=== PATIENT | female | born 1960 | race Caucasian/White ===

== ENCOUNTER 2016-11-16 10:11 | Outpatient (CLI) | payer OTHER ==
--- NOTE | 2016-11-24 13:12 | Mammography Report ---
DIGITAL SCREENING MAMMOGRAM: 11/16/2016 CLINICAL INDICATION: A 56-year-old for screening. COMPARISON: Films from [place], [place] dated 03/02/2014, 04/06/2011, 03/11/2010, 10/06/2006, 06/06/2005 TECHNIQUE: Routine CC and MLO projections were obtained of the breasts. FINDINGS: The breasts again demonstrate scattered fibroglandular densities bilaterally. In the righ t upper-inner posterior breast, there is a possible obscured nodule. Further evaluation with spot co mpression views and possible ultrasound is recommended. A few punctate, typically benign calcificati ons are present. No mammographically suspicious findings are appreciated in the left breast. IMPRESSION: INCOMPLETE EXAMINATION. RECOMMENDATION: Additional evaluation of the right breast as above. BIRADS CATEGORY 0 - INCOMPLETE. STANDARD QUALIFYING STATEMENTS 1. This examination was reviewed with the aid of Computer-Aided Detection (CAD). 2. A negative or benign imaging report should not delay biopsy if clinically suspicious findings are present. Consider surgical consultation if warranted. More than 5% of cancers are not identified by i maging. 3. Dense breasts may obscure an underlying neoplasm. JOB #: [id number] EXT JOB #:[id number]
== END 2016-11-16 10:12 | disposition home or self-care (01) ==
LOC: DI 10:11
PROVIDERS: ATTEND Family Medicine
DX: Z12.31 Encounter for screening mammogram for malignant neoplasm of breast (principal); R92.8 Other abnormal and inconclusive findings on diagnostic imaging of breast
CPT/HCPCS: 77067

== ENCOUNTER 2016-12-14 10:39 | Outpatient (CLI) | payer OTHER ==
--- NOTE | 2016-12-14 12:42 | Mammography Report ---
DIGITAL DIAGNOSTIC RIGHT MAMMOGRAM: 12/14/2016 CLINICAL INDICATION: Nodule on screening. TECHNIQUE: Right true lateral and spot compression views. COMPARISON: 11/16/2016, 03/02/2014, 04/06/2011, 05/12/2009, 10/06/2006, 06/06/2005. FINDINGS: The right breast again demonstrates scattered fibroglandular densities. The nodule in the right upper inner posterior breast persists on additional compression, and demonstrates a fatty hilum on additional compression, compatible with an intramammary lymph node. No associated calcifications are seen. No mammographically suspicious findings are appreciated. IMPRESSION: INTRAMAMMARY LYMPH NODE, ACCOUNTING FOR THE SCREENING ABNORMALITY. RECOMMENDATION: ROUTINE ANNUAL SCREENING UNLESS OTHERWISE CLINICALLY INDICATED. BIRADS CATEGORY 2-BENIGN FINDINGS. STANDARD QUALIFYING STATEMENTS 1. This examination was reviewed with the aid of Computer-Aided Detection (CAD). 2. A negative or benign imaging report should not delay biopsy if clinically suspicious findings are present. Consider surgical consultation if warranted. More than 5% of cancers are not identified by i maging. 3. Dense breasts may obscure an underlying neoplasm. JOB #: [id number] EXT JOB #:
== END 2016-12-14 10:40 | disposition home or self-care (01) ==
LOC: DI 10:39
PROVIDERS: ATTEND Family Medicine
DX: R92.2 Inconclusive mammogram (principal)

== ENCOUNTER 2019-10-10 17:48 | Outpatient (CLI) | payer OTHER ==
--- NOTE | 2019-10-12 14:13 | Ultrasound Report ---
PROCEDURE: Duplex Ext Veins Bilateral INDICATIONS: ERROL BENTLEYLER TECHNIQUE: Real-time imaging, as well as color and pulse Doppler interrogation, were performed of the deep veins of both legs from the inguinal ligament to the popliteal fossa. COMPARISON: Ultrasound arterial 10/10/2019 FINDINGS: The deep veins are normally compressible, and free of intraluminal thrombus. Color and pu lse Doppler demonstrate normal phasic intravascular flow. There is normal augmentation response to d istal compression maneuver. It is noted that there is a nonocclusive thrombus within the greater sap henous vein. IMPRESSION: 1. No deep venous thrombosis. 2. Nonocclusive greater saphenous vein thrombosis, suggestive of thrombophlebitis. Reviewed by: Zulma Ratliff MD on 10/12/2019 2:12 PM PDT Approved by: Zulma Ratliff MD on 10/12/2019 2:12 PM PDT Station ID: [id number]
--- NOTE | 2019-10-12 14:16 | Ultrasound Report ---
PROCEDURE: Duplex Lwr Ext Arterial Bilat INDICATIONS: BILATERAL LEG PAIN TECHNIQUE: Color and pulse Doppler interrogation was performed of both lower extremity arterial systems, with im age documentation. COMPARISON: Ultrasound venous 10/10/2019 FINDINGS: Right lower extremity: Common femoral artery: 116 cm/sec, with triphasic flow. Deep femoral artery: 81 cm/sec, with biphasic flow. Proximal superficial femoral artery: 92 cm/sec, with triphasic flow. Mid superficial femoral artery: 96 cm/sec, with triphasic flow. Distal superficial femoral artery: 82 cm/sec, with triphasic flow. Popliteal artery: 97 cm/sec, with triphasic flow. Posterior tibial artery: 56 cm/sec, with triphasic flow. Anterior tibial artery/dorsalis pedis: 60/44 cm/sec, with triphasic/biphasic flow. Ferreira-scale imaging description: Scattered calcifications. Left lower extremity: Common femoral artery: 130 cm/sec, with triphasic flow. Deep femoral artery: 84 cm/sec, with triphasic flow. Proximal superficial femoral artery: 119 cm/sec, with triphasic flow. Mid superficial femoral artery: 95 cm/sec, with triphasic flow. Distal superficial femoral artery: 75 cm/sec, with triphasic flow. Popliteal artery: 63 cm/sec, with triphasic flow. Posterior tibial artery: 62 cm/sec, with biphasic flow. Anterior tibial artery/dorsalis pedis: 41/48 cm/sec, with triphasic/biphasic flow. Ferreira-scale imaging description: Artery calcifications. IMPRESSION: No hemodynamically significant stenosis, vascular occlusion or aneurysmal dilation. Reviewed by: Zulma Ratliff MD on 10/12/2019 2:15 PM PDT Approved by: Zulma Ratliff MD on 10/12/2019 2:15 PM PDT Station ID: [id number]
== END 2019-10-10 17:49 | disposition home or self-care (01) ==
LOC: DI 17:48
PROVIDERS: ATTEND Nurse Practitioner Family
DX: M79.661 Pain in right lower leg (principal); M79.662 Pain in left lower leg; I82.819 Embolism and thrombosis of superficial veins of unspecified lower extremity
CPT/HCPCS: 93925; 93970

== ENCOUNTER 2020-10-20 12:25 | Outpatient (CLI) | payer OTHER ==
[2020-10-20 12:57] LABS: CREATININE 0.7 mg/dL (0.4-1.0)
[2020-10-20] MEDS ORDERED: IOVERSOL 320 100 ML VIAL IVP ONE (12:57)
--- NOTE | 2020-10-20 14:57 | CT Report ---
PROCEDURE: IVP INDICATIONS: HEMATURIA CONTRAST: IV CONTRAST: Optiray 320 ml: 140 PO CONTRAST: *NO PO CONTRAST TECHNIQUE: After the administration of intravenous contrast, 5 mm thick sections acquired from the diaphragms to the symphysis. 5 mm thick coronal and sagittal reformats were acquired. For radiation dose reducti on, the following was used: automated exposure control, adjustment of mA and/or kV according to eloy ent size. COMPARISON: None. FINDINGS: Image quality: Excellent. Lung bases: Lung bases demonstrate an 8 mm nodule in the right middle lobe with a linear adjacent pl eural scar. A 4 mm subpleural nodule posteromedial left lower lobe. Heart size is normal. Urinary system: 2 mm nonobstructing right lower pole intrarenal calcification, and a few punctate ca lcifications in the upper pole calyx. There is mild to moderate right hydronephrosis and prominence o f the extrarenal pelvis. Moderate right hydroureter to the level of the midpelvis. There is periurete analisa inflammation. At the mid pelvis, a 9 mm calcification is present in in the distal right ureter, t here is one, possibly 2 calcifications together measuring about 5 mm in length. There are punctate nonobstructing left upper pole intrarenal calculi, a collection of calculi in the left lower pole, which together measures at least 1.5 cm. There is a 5.3 cm parapelvic cyst in the le ft kidney. No left hydronephrosis or hydroureter. Solid organs: The liver is normal in size and mildly diffusely hypodense. The gallbladder is partial ly decompressed around several small gallstones. No wall thickening. No adrenal nodules. Spleen is no rmal size. The pancreas is normal Peritoneum and bowel: Bowel loops demonstrate normal wall thickness and caliber. No free fluid or a ir. Nodes and vessels: No retroperitoneal or mesenteric adenopathy by size criteria. Aorta and inferior vena cava are normal in size. Abdominal wall: No ventral hernias. Pelvis: No pathologic free pelvic fluid. No inguinal hernias or adenopathy. Bones: No suspicious bony lesions. No vertebral body compression fractures. IMPRESSION: 1. There are at least 2 right distal ureteral calcifications causing chronic appearing mild to modera te hydroureteronephrosis. Urology consult is recommended given their size. 2. Several nonobstructing bilateral intrarenal calculi. 3. Left parapelvic cyst. 4. Two lower lung nodules. Full chest CT is recommended to assess for other nodules. 5. Cholelithiasis. Reviewed by: Madison Darnell MD on 10/20/2020 2:56 PM PDT Approved by: Madison Darnell MD on 10/20/2020 2:56 PM PDT Station ID: [id number]
[2020-10-20] MEDS: IOVERSOL 320 100 ML VIAL IVP ONE (17:36)
== END 2020-10-20 12:26 | disposition home or self-care (01) ==
LOC: DI 12:25
PROVIDERS: ATTEND Registered Nurse
DX: N13.2 Hydronephrosis with renal and ureteral calculous obstruction (principal); R91.8 Other nonspecific abnormal finding of lung field; N28.1 Cyst of kidney, acquired; K80.20 Calculus of gallbladder without cholecystitis without obstruction; R31.29 Other microscopic hematuria
CPT/HCPCS: 36415; 74178; 82565; Q9967

== ENCOUNTER 2020-10-24 14:26 | Outpatient (CLI) | payer OTHER ==
--- NOTE | 2020-10-26 12:59 | Mammography Report ---
BILATERAL DIGITAL SCREENING MAMMOGRAM 3D/2D: 10/24/2020 CLINICAL: Routine screening. Comparison is made to exams dated: 12/14/2016 mammogram and 11/16/2016 mammogram - [facility]. The tissue of both breasts is predominantly fatty. There is an oval asymmetry in the right breast sub-areolar depth central to the nipple seen on the me diolateral oblique view only. There also is a mass in the right breast central to the nipple middle depth. There is an asymmetry in the left breast middle depth central to the nipple seen on the craniocaudal view only. IMPRESSION: INCOMPLETE: NEEDS ADDITIONAL IMAGING EVALUATION The oval asymmetry in the right breast sub-areolar depth central to the nipple seen on the mediolater al oblique view only is indeterminate. Additional views with possible ultrasound are recommended. The mass in the right breast central to the nipple middle depth is indeterminate. Additional views w ith possible ultrasound are recommended. The asymmetry in the left breast middle depth central to the nipple seen on the craniocaudal view onl y is indeterminate. Additional views with possible ultrasound are recommended. This exam was interpreted at Station ID: [id number]. NOTE: For mammograms, a report in lay terms will be sent to the patient. Approximately 15% of breast malignancies will not be visualized mammographically. In the management of a palpable breast mass, a negative mammogram must not discourage biopsy of a clinically suspicious lesion. Electronically Signed By: Chapin Martins M.D. jr/:10/25/2020 09:49:27 ACR BI-RADS Category 0: Incomplete 3340F PARENCHYMAL PATTERN: (F) - The breast(s) demonstrate(s) diffuse fatty replacement. BI-RADS CATEGORY: (0) - 0 Mammo and US [id number] Immediate follow-up LATERALITY: (B)
== END 2020-10-24 14:27 | disposition home or self-care (01) ==
LOC: DI.S 14:26
DX: Z12.31 Encounter for screening mammogram for malignant neoplasm of breast (principal); R92.8 Other abnormal and inconclusive findings on diagnostic imaging of breast

== ENCOUNTER 2020-11-12 08:26 | Outpatient (CLI) | payer OTHER ==
[2020-11-12] MEDS ORDERED: IOPAMIDOL-300 100 ML VIAL ONE (08:39)
--- NOTE | 2020-11-12 09:16 | CT Report ---
PROCEDURE: CHEST W INDICATIONS: LUNG NODULES CONTRAST: IV CONTRAST: Isovue 300 ml: 100 PO CONTRAST: *NO PO CONTRAST TECHNIQUE: After the administration of intravenous contrast, images were acquired from the pulmonary apices to t he posterior costophrenic angles. Multiplanar MIP reformats were acquired. For radiation dose reduc tion, the following was used: automated exposure control, adjustment of mA and/or kV according to pa tient size. COMPARISON: CT IVP dated 10/20/2020 FINDINGS: Image quality: Excellent. Lungs and pleura: Pulmonary nodules are as follows: Nodule 1: Right middle lobe, image 166/4, 7 mm. Nodule 2: Pleural-based, posterior left lower lobe, image 167/4, 4 mm. These nodules are unchanged from the recent prior study. No additional pulmonary nodules identified. No acute air space opacities. No pleural effusions or pneumothorax. Central and peripheral airways are patent and normal in caliber. Mediastinum: Heart size is normal. No pericardial effusion. No mediastinal or hilar adenopathy by size criteria. Thoracic aorta and central pulmonary arteries are normal in size. Incidental note is made of normal variant anatomy in which there is apparent origin of the right subclavian off the pro ximal descending thoracic aorta. Esophagus is normal in caliber. No hiatal hernia. Bones and chest wall: No suspicious bony lesions. No vertebral body compression fractures. No axil gina or supraclavicular adenopathy by size criteria. The thyroid is normal in size and there are no incidental findings.. Abdomen: Imaging does not extend inferiorly far enough to comment on the current status of the right renal collecting system. Multiple calcified gallstones. Diffuse hepatic steatosis. IMPRESSION: 1. The 2 pulmonary nodules previously described are unchanged on short interval follow-up. These are the only 2 pulmonary nodules identified, a 7 mm right middle lobe pulmonary nodule and a 4 mm left lo wer lobe pulmonary nodule. 2. Incidental note made of normal variant arch anatomy, apparent right subclavian artery off the prox imal descending thoracic aorta. 3. Hepatic steatosis. 4. Cholelithiasis. 5. Right renal collecting system is not included on the current study. Comment: As per the Fleischner Society criteria,If the patient is at low risk for lung cancer follow up CT at 6-12 months, then at 18-24 months if not change. If the patient has risk factors for lung c ladan follow up chest CT at 3-6 months, then at 9-12 months and 24 months if no change. CLINICAL RECOMMENDATION STATEMENTS: In patients <35 years with an ITN detected on CT, MRI, or extrathyroidal ultrasound, the Committee re commends further evaluation with dedicated thyroid ultrasound if the nodule is ?1 cm and has no suspi cious imaging features, and if the patient has normal life expectancy. In patients ?35 years with an ITN detected on CT, MRI, or extrathyroidal ultrasound, the Committee re commends further evaluation with dedicated thyroid ultrasound if the nodule is ?1.5 cm and has no ariana picious imaging features, and if the patient has normal life expectancy. (ACR, 2014) Reviewed by: Van Santiago MD on 11/12/2020 9:15 AM PDT Approved by: Van Santiago MD on 11/12/2020 9:15 AM PDT Station ID: [id number]
[2020-11-12] MEDS ORDERED: IOPAMIDOL-300 100 ML VIAL IVP ONE (11:32)
== END 2020-11-12 08:27 | disposition home or self-care (01) ==
LOC: DI 08:26
PROVIDERS: ATTEND Family Medicine
DX: R91.8 Other nonspecific abnormal finding of lung field (principal); K76.0 Fatty (change of) liver, not elsewhere classified; K80.20 Calculus of gallbladder without cholecystitis without obstruction; N60.41 Mammary duct ectasia of right breast; N60.11 Diffuse cystic mastopathy of right breast
CPT/HCPCS: 71260; 76642; 77066; Q9967

== ENCOUNTER 2020-11-12 08:28 | Outpatient (CLI) | payer OTHER ==
--- NOTE | 2020-11-15 16:38 | Mammography Report ---
BILATERAL DIGITAL DIAGNOSTIC MAMMOGRAM 3D/2D: 11/12/2020 CLINICAL: Patient returns today to evaluate a focal asymmetry in the left breast. Patient returns tod ay to evaluate an asymmetry in the right breast. Comparison is made to exams dated: 10/24/2020 mammogram, 12/14/2016 mammogram, 11/16/2016 mammogram - [facility], and 03/02/2014 mammogram - [facility]. There are scattered fibroglan dular elements in both breasts. There is possible equal density duct ectasia in the right breast at 12 o'clock anterior depth. This is less prominent. There also is a 1.4 cm oval mass with a circumscribed margin in the right breast at 12 o'clock anteri or depth. This is confirmed in additional views. There is a 1 cm oval equal density mass in the left breast central to the nipple middle-posterior dep th. This is seen in additional views. No other significant masses or calcifications are seen in either breast. IMPRESSION: INCOMPLETE: NEEDS ADDITIONAL IMAGING EVALUATION The possible equal density duct ectasia in the right breast at 12 o'clock anterior depth is indetermi isma. The 1.4 cm oval mass in the right breast at 12 o'clock anterior depth resembles a cyst or a lymph nod e and is indeterminate. The 1 cm oval equal density mass in the left breast central to the nipple middle depth resembles a cy st or a lymph node and is indeterminate. A bilateral ultrasound is recommended for further evaluation and is scheduled to immediately follow t his examination. This exam was interpreted at Station ID: [id number]. NOTE: For mammograms, a report in lay terms will be sent to the patient. Approximately 15% of breast malignancies will not be visualized mammographically. In the management of a palpable breast mass, a negative mammogram must not discourage biopsy of a clinically suspicious lesion. Electronically Signed By: Tim Thibodeaux M.D. aty/:11/12/2020 10:17:01 ACR BI-RADS Category 0: Incomplete 3340F PARENCHYMAL PATTERN: (A) - The breast(s) demonstrate(s) scattered fibroglandular densities. BI-RADS CATEGORY: (0) - 0 Ultrasound [id number] Immediate follow-up LATERALITY: (B)
--- NOTE | 2020-11-15 16:38 | Ultrasound Report ---
LIMITED ULTRASOUND OF RIGHT BREAST: 11/12/2020 CLINICAL: Patient returns today to evaluate a focal asymmetries in the right breast. Comparison is made to exams dated: 11/12/2020 mammogram, 10/24/2020 mammogram, 12/14/2016 mammogram, mammogram - [facility], and 03/02/2014 mammogram - [facility]. Color flow and real-time ultrasound of the right breast 11 o'clock, and retroareolar regions were per formed. Ferreira scale images of the real-time examination were reviewed. There is duct ectasia in the right breast central to the nipple anterior depth. This duct ectasia di splays internal echoes. This correlates with mammography findings. Color flow imaging demonstrates that there is no vascularity present. There also is a 1.2 cm x 0.4 cm x 1.1 cm oval cyst in the right breast at 11 o'clock anterior depth 9 cm from the nipple. This oval cyst is anechoic with posterior acoustic enhancement. This correlate s with mammography findings. Color flow imaging demonstrates that there is no vascularity present. Additionally, there is a 0.4 cm oval cyst in the right breast central to the nipple anterior depth. This oval cyst is anechoic. This correlates as an incidental finding. Color flow imaging demonstrat es that there is no vascularity present. IMPRESSION: BENIGN There is no sonographic evidence of malignancy. The duct ectasia in the right breast central to the nipple anterior depth is benign. The 1.2 cm x 0.4 cm x 1.1 cm oval cyst in the right breast at 11 o'clock anterior depth is consistent with a simple cyst and is benign. The 0.4 cm oval cyst in the right breast central to the nipple anterior depth is consistent with a si mple cyst and is benign. A 1 year screening mammogram is recommended. Findings and recommendations were conveyed to the patient during today's evaluation. This exam was interpreted at Station ID: [id number]. Electronically Signed By: Tim Thibodeaux M.D. aty/:11/12/2020 11:42:39 Ultrasound BI-RADS: 2 Benign BI-RADS CATEGORY: (2) - 2 RECOMMENDATION: (ANNUAL) - Recommend routine annual screening mammography. [id number] 1 year screening LATERALITY: (B)
--- NOTE | 2020-11-15 16:39 | Ultrasound Report ---
LIMITED ULTRASOUND OF LEFT BREAST: 11/12/2020 CLINICAL: Patient returns today to evaluate a focal asymmetry in the left breast. Comparison is made to exams dated: 11/12/2020 mammogram, 10/24/2020 mammogram, 12/14/2016 mammogram, mammogram - [facility], and 03/02/2014 mammogram - [facility]. Real-time ultrasound of the left breast retroareolar was performed. Ferreira scale images of the real-t antionette examination were reviewed. No significant abnormalities were seen sonographically in the left breast. IMPRESSION: NEGATIVE There is no sonographic evidence of malignancy. There is no abnormality seen in the left breast to correspond with the mammography finding which like ly represents normal fibroglandular tissue. A 1 year screening mammogram is recommended. Findings and recommendations were conveyed to the patient during today's evaluation. This exam was interpreted at Station ID: [id number]. Electronically Signed By: Tim Thibodeaux M.D. aty/:11/12/2020 11:21:59 Ultrasound BI-RADS: 1 Negative BI-RADS CATEGORY: (1) - 1 RECOMMENDATION: (ANNUAL) - Recommend routine annual screening mammography. [id number] 1 year screening LATERALITY: (B)
== END 2020-11-12 08:29 | disposition home or self-care (01) ==
LOC: DI 08:28
PROVIDERS: ATTEND Family Medicine
DX: N60.41 Mammary duct ectasia of right breast (principal); N60.11 Diffuse cystic mastopathy of right breast

== ENCOUNTER 2021-02-03 10:47 | Outpatient (CLI) | payer OTHER ==
--- NOTE | 2021-02-03 11:35 | CT Report ---
PROCEDURE: Abdomen/Pelvis WO INDICATIONS: KIDNEY STONES TECHNIQUE: Noncontrast 5 mm thick sections acquired from the diaphragms to the symphysis. 5 mm coronal and sagi ttal reformats were then performed. For radiation dose reduction, the following was used: automated exposure control, adjustment of mA and/or kV according to patient size. COMPARISON: CT IVP dated 10/20/2020 FINDINGS: ABDOMEN: Lung bases: Poorly visualized 6 mm nodule involving the right middle lobe. Background right middle lo be and lingular atelectasis/scarring. Heart:Normal. Liver: Normal. Gallbladder: Contains numerous sub-5 mm gallstones although no definite associated pericholecystic in flammatory changes. Bile ducts: Normal. Pancreas: Normal. Spleen: Normal. Adrenals: Normal. Kidneys and ureters: No evidence of right-sided urolithiasis. No right-sided hydronephrosis. Prominen t left parapelvic cysts. The left ureter appears decompressed. There is a large 1.3 cm left renal wilner culus. Additional smaller 1-2 mm left renal calculi. There is no definite perinephric inflammatory st randing. No left ureteral calculus is seen. Stomach and duodenum: Normal. Bowel: Normal appearance of the appendix. There is diffuse lcyy-te-dmrhtohm stool. Incidentally noted colonic diverticula. The rectum is decompressed otherwise unremarkable. No evidence of bowel obstruc tion. Other: No free fluid or air. Abdominal nodes: Normal. Aorta: Normal in sizel. IVC: Normal. Ventral wall: Fat-containing. Local hernia. PELVIS: Bladder: Normal. Pelvic nodes: Normal. Inguinal regions: No hernia. Bones: No vertebral body compression fracture. No suspicious bone lesion. IMPRESSION: Grossly unchanged appearance of large left parapelvic cyst and renal calculi as detailed above since the prior study. Interval resolution of previously right-sided urinary obstruction and right urolithiasis. 6 mm nodule involving the visualized right middle lobe which is technically indeterminate although un changed since the prior study. At this time still cannot exclude early metastatic or malignant possib ilities. Recommend continued follow-up with CT chest in September 2021. Additional chronic and incidental findings as above. Reviewed by: Ramon Castle MD on 02/03/2021 11:33 AM PDT Approved by: Ramon Castle MD on 02/03/2021 11:33 AM PDT Station ID: [id number]
== END 2021-02-03 10:48 | disposition home or self-care (01) ==
LOC: DI 10:47
PROVIDERS: ATTEND Urology
DX: N20.0 Calculus of kidney (principal); N28.1 Cyst of kidney, acquired; R91.1 Solitary pulmonary nodule

== ENCOUNTER 2022-06-22 07:11 | Outpatient (CLI) | payer MEDICAID ==
[2022-06-22 14:31] LABS: BASOPHILS % (AUTO) 0.7 %; EOSINOPHILS # (AUTO) 0.1 10^3/uL (0.0-0.7); EOSINOPHILS % (AUTO) 1.4 %; HCT - HEMATOCRIT 44.7 % (37.0-47.0); LYMPHOCYTES # (AUTO) 1.6 10^3/uL (1.5-3.5); LYMPHOCYTES % (AUTO) 28.1 %; MEAN CORPUSCULAR HEMOGLOBIN 28.7 pg (27.0-31.0); MEAN CORPUSCULAR HGB CONC 31.3 g/dL (32.0-36.0); MEAN CORPUSCULAR VOLUME 91.8 fL (81.0-99.0); MEAN PLATELET VOLUME 11.2 fL (7.9-10.8); MONOCYTES # (AUTO) 0.5 10^3/uL (0.0-1.0); MONOCYTES % (AUTO) 9.3 %; NEUTROPHILS # (AUTO) 3.4 10^3/uL (1.5-6.6); NEUTROPHILS % (AUTO) 60.1 %; PLT - PLATELET COUNT 256 10^3/uL (130-450); RED BLOOD COUNT 4.87 10^6/uL (4.20-5.40); RED CELL DISTRIBUTION WIDTH 12.9 % (12.0-15.0); WHITE BLOOD COUNT 5.7 x10^3/uL (4.8-10.8)
[2022-06-22 14:51] LABS: ESTIMATED AVERAGE GLUCOSE 123 mg/dL (70-100); HEMOGLOBIN A1c% 5.9 % (4.27-6.07)
[2022-06-22 15:06] LABS: THYROID STIMULATING HORMONE 2.38 uIU/mL (0.34-5.60)
[2022-06-22 15:12] LABS: ALBUMIN/GLOBULIN RATIO 1.1 (1.0-2.2); ALKALINE PHOSPHATASE 70 IU/L (42-121); ALT ALANINE AMINOTRANSFERASE 52 IU/L (10-60); AST ASPARTATE AMINOTRANSFERASE 32 IU/L (10-42); BILIRUBIN,TOTAL 0.7 mg/dL (0.2-1.0); BUN - BLOOD UREA NITROGEN 19 mg/dL (6-20); CALCIUM 9.1 mg/dL (8.5-10.3); CARBON DIOXIDE - CO2 27 mmol/L (21-32); CHLORIDE 108 mmol/L (101-111); CHOL/HDL RATIO 3.9 (<4.4); CHOLESTEROL 233 mg/dL; CREATININE 0.5 mg/dL (0.4-1.0); GFR - MDRD 125 (>89); GLUCOSE 119 mg/dL (70-100); HDL CHOLESTEROL 59 mg/dL; LDL CHOLESTEROL,CALCULATED 155 mg/dL; LDL/HDL RATIO 2.6 (<4.4); SODIUM 140 mmol/L (135-145); TOTAL PROTEIN 7.6 g/dL (6.7-8.2); TRIGLYCERIDES 93 mg/dL; VLDL CHOLESTEROL 19 mg/dL
== END 2022-06-22 07:12 | disposition home or self-care (01) ==
LOC: LAB.S 07:11
PROVIDERS: ATTEND Nurse Practitioner Acute Care
DX: Z13.228 Encounter for screening for other metabolic disorders (principal); Z13.220 Encounter for screening for lipoid disorders; Z13.1 Encounter for screening for diabetes mellitus; Z13.29 Encounter for screening for other suspected endocrine disorder; Z13.0 Encounter for screening for diseases of the blood and blood-forming organs and certain disorders involving the immune mechanism
CPT/HCPCS: 36415; 80050; 80061; 83036; 83721

== ENCOUNTER 2022-07-13 13:04 | Outpatient (CLI) | payer MEDICAID ==
[2022-07-13] MEDS ORDERED: iohexoL-300 100 ML VIAL ONE (13:57)
[2022-07-13 13:58] LABS: CREATININE 0.6 mg/dL (0.4-1.0)
[2022-07-13] MEDS ORDERED: iohexoL-300 100 ML VIAL IVP ONE (15:12)
--- NOTE | 2022-07-13 15:52 | Ultrasound Report ---
PROCEDURE: Duplex Ext Veins Bilateral INDICATIONS: ASHLEY Ortiz TECHNIQUE: Real-time imaging, as well as color and pulse Doppler interrogation, were performed of the deep veins of both legs from the inguinal ligament to the popliteal fossa. COMPARISON: Report only from Duplex ultrasound 10/10/2019 FINDINGS: The deep veins are normally compressible, and free of intraluminal thrombus. Color and pu lse Doppler demonstrate normal phasic intravascular flow. There is normal augmentation response to d istal compression maneuver. Superficial venous thrombus is seen within the right greater saphenous ve in without complete occlusion. Distance to the confluence with the common femoral vein was not measur ed. By report, thrombus was seen in this location on prior ultrasound from 10/12/2019, although images are not available. IMPRESSION: 1.No sonographic evidence of deep venous thrombosis in the right or left lower extremity. 2.Nonocclusive superficial venous thrombus versus chronic post thrombotic changes in the right greate r saphenous vein. Reviewed by: Adam Gonzalez MD on 07/13/2022 3:50 PM PDT Approved by: Adam Gonzalez MD on 07/13/2022 3:50 PM PDT Station ID: [id number]
--- NOTE | 2022-07-13 17:06 | CT Report ---
PROCEDURE: CHEST W INDICATIONS: EDEMA, LUNG NODULE CONTRAST: 100ml Omnipaque 300 TECHNIQUE: After the administration of intravenous contrast, 1 mm axial images were acquired from the pulmonary apices through the posterior costophrenic angles. Axial 5 mm soft tissue kernel reconstructions were performed as well as 8 mm axial MIP and coronal and sagittal 5 mm reformations. For radiation dose reduction, the following was used: automated exposure control, adjustment of mA and/or kV according to patient size. COMPARISON: CT 11/12/2020. FINDINGS: Image quality: Excellent. Lungs and pleura: No pleural effusions. No pneumothorax. Stable 7 mm solid nodule in the right middl e lobe (4/185) statistically benign. Stable juxtapleural nodularity along the right fissure, consiste nt with a benign etiology. 6 mm solid nodule, medial left lower lobe, stable and statistically benign (4/197). Mediastinum: Heart size is normal. No pericardial effusions. No mediastinal adenopathy by size criter ia. No large vessel abnormality. Aberrant right subclavian artery. Small hiatal hernia. Chest wall and lower neck: No thyroid nodule which requires sonographic follow up. No axillary or sup raclavicular adenopathy by size. Right-sided breast cysts. Bones: No aggressive osseous abnormality. Upper Abdomen: Large left renal sinus cyst. Cholelithiasis. IMPRESSION: Stable pulmonary nodules since 2020, statistically benign. Reviewed by: Eleazar Arzola on 07/13/2022 5:05 PM PDT Approved by: Eleazar Arzola on 07/13/2022 5:05 PM PDT Station ID: [id number]
== END 2022-07-13 13:05 | disposition home or self-care (01) ==
LOC: LAB 13:04
PROVIDERS: ATTEND Nurse Practitioner Acute Care
DX: R91.8 Other nonspecific abnormal finding of lung field (principal); R60.9 Edema, unspecified
CPT/HCPCS: 36415; 71260; 82565; 93970; Q9967

== ENCOUNTER 2022-07-20 08:14 | Outpatient (CLI) | payer MEDICAID ==
--- NOTE | 2022-07-20 10:50 | Ultrasound Report ---
PROCEDURE: Abdomen Complete INDICATIONS: AORTIC PULSATION IN ABDOMEN TECHNIQUE: Real-time scanning was performed of the abdominal and retroperitoneal organs, with image documentatio n. COMPARISON: CT abdomen pelvis without contrast 02/03/2021 FINDINGS: Liver: Increased liver echogenicity, commonly mild hepatic steatosis. Gallbladder: Gallstones are present without wall thickening or sonographic Carr sign. Biliary ducts: Intrahepatic bile ducts are non-dilated. Extrahepatic bile duct caliber measures 5 m m. Normal is 6-7 mm or less in diameter, or 10 mm or less post-cholecystectomy. Pancreas: Visualized portions of the pancreas are sonographically normal. Spleen: Spleen is normal in size and homogeneous in echotexture. Kidneys: Kidneys are normal in size and echotexture. Right kidney measures 12.1 cm long; left kidne y measures 12.7 cm long. 7 mm echogenic focus at the right upper kidney, possible nonobstructing ston e. Clustered stones present at the left inferior kidney as seen on prior CT. No definite hydronephros is. Redemonstrated simple appearing left renal cyst measuring up to 5.5 cm. Aorta: Visualized aorta is normal in caliber at less than 3 cm. Iliacs: Proximal common iliac arteries are normal in caliber at less than 2.5 cm. IVC: Intrahepatic inferior vena cava is patent. Miscellaneous: No free abdominal fluid. IMPRESSION: 1. No abdominal aortic aneurysm identified sonographically. 2. Cholelithiasis without evidence of acute cholecystitis. 3. The liver is echogenic, a nonspecific finding commonly seen in the setting of steatosis. 4. Nonobstructing left renal stones present as before. Possible nonobstructing right renal stone also demonstrated. Reviewed by: Adam Boudreaux MD on 07/20/2022 10:49 AM PDT Approved by: Adam Boudreaux MD on 07/20/2022 10:49 AM PDT Station ID: [id number]
== END 2022-07-20 08:15 | disposition home or self-care (01) ==
LOC: DI 08:14
PROVIDERS: ATTEND Nurse Practitioner Acute Care
DX: K80.20 Calculus of gallbladder without cholecystitis without obstruction (principal); N20.0 Calculus of kidney; R09.89 Other specified symptoms and signs involving the circulatory and respiratory systems

== ENCOUNTER 2022-08-02 16:07 | Outpatient (CLI) | payer MEDICAID ==
--- NOTE | 2022-08-03 09:56 | Ultrasound Report ---
PROCEDURE: Duplex Ext Veins Right INDICATIONS: THROMBOSIS TECHNIQUE: Real-time imaging, as well as color and pulse Doppler interrogation, were performed of the lower extr emity deep veins from the inguinal ligament to the popliteal fossa. COMPARISON: Ultrasound lower extremity bilateral, 07/13/2022. FINDINGS: The deep veins are normally compressible, and free of intraluminal thrombus. Color and pu lse Doppler demonstrate normal phasic intraluminal flow. There is normal augmentation response to di stal compression maneuver. Again noted is nonocclusive filling defect in the greater saphenous vein extending to the saphenofemo ral junction. There is a 4.6 x 0.7 x 2.8 cm fluid collection in the posterior lateral aspect in the knee. IMPRESSION: 1. No DVT in the right lower extremity. 2. Chronic nonocclusive superficial venous thrombus within the greater saphenous vein as seen before. 3. A 4.6 x 0.7 x 2 point centimeter fluid collection in the posterior lateral aspect of the knee, mos t likely a synovial cyst. Reviewed by: Kennedy Sutherland MD on 08/03/2022 9:55 AM PDT Approved by: Kennedy Sutherland MD on 08/03/2022 9:55 AM PDT Station ID: [id number]
== END 2022-08-02 16:08 | disposition home or self-care (01) ==
LOC: DI 16:07
PROVIDERS: ATTEND Nurse Practitioner Acute Care
DX: I82.811 Embolism and thrombosis of superficial veins of right lower extremity (principal)

== ENCOUNTER 2022-08-03 09:28 | Outpatient (CLI) | payer MEDICAID ==
--- NOTE | 2022-08-04 10:18 | Mammography Report ---
BILATERAL DIGITAL SCREENING MAMMOGRAM 3D/2D: 08/03/2022 CLINICAL: Routine screening. Family history of breast cancer. Comparison is made to exams dated: 11/12/2020 mammogram, 10/24/2020 mammogram, and 12/14/2016 mammogram - [facility]. There are scattered areas of fibroglandular density in both breasts (category b / 25%-50% glandular t issue). There are benign cysts in the right breast. No significant masses, calcifications, or other findings are seen in either breast. There has been no significant interval change. IMPRESSION: BENIGN There is no mammographic evidence of malignancy. A 1 year screening mammogram is recommended. Based on the Tyrer Cuzick model (a risk assessment model) the patients lifetime risk is 7.1% and her 10 year risk is 3.1%. According to the ACR, ACS, and NCCN guidelines, an annual breast MRI exam annita g with mammogram is recommended if the patients lifetime risk is 20% or greater. This exam was interpreted at Station ID: [id number]. NOTE: For mammograms, a report in lay terms will be sent to the patient. Approximately 15% of breast malignancies will not be visualized mammographically. In the management of a palpable breast mass, a negative mammogram must not discourage biopsy of a clinically suspicious lesion. Electronically Signed By: Madison vazquez/romy:08/03/2022 15:31:28 letter sent: No_Letter ACR BI-RADS Category 2: Benign Finding(s) 3342F PARENCHYMAL PATTERN: (A) - The breast(s) demonstrate(s) scattered fibroglandular densities. BI-RADS CATEGORY: (2) - 2 Mammogram [id number] 1 year screening LATERALITY: (B)
== END 2022-08-03 09:29 | disposition home or self-care (01) ==
LOC: DI.S 09:28
PROVIDERS: ATTEND Nurse Practitioner Acute Care
DX: Z12.31 Encounter for screening mammogram for malignant neoplasm of breast (principal); Z80.3 Family history of malignant neoplasm of breast

== ENCOUNTER 2022-09-14 10:51 | Outpatient (CLI) | payer MEDICAID ==
[2022-09-14 11:09] LABS: BASOPHILS # (AUTO) 0.1 10^3/uL (0.0-0.1); BASOPHILS % (AUTO) 0.7 %; EOSINOPHILS # (AUTO) 0.1 10^3/uL (0.0-0.7); EOSINOPHILS % (AUTO) 2.1 %; HCT - HEMATOCRIT 41.4 % (37.0-47.0); HGB - HEMOGLOBIN 13.8 g/dL (12.0-16.0); LYMPHOCYTES # (AUTO) 1.9 10^3/uL (1.5-3.5); LYMPHOCYTES % (AUTO) 27.8 %; MEAN CORPUSCULAR HEMOGLOBIN 29.1 pg (27.0-31.0); MEAN CORPUSCULAR HGB CONC 33.3 g/dL (32.0-36.0); MEAN CORPUSCULAR VOLUME 87.3 fL (81.0-99.0); MEAN PLATELET VOLUME 10.8 fL (7.9-10.8); MONOCYTES # (AUTO) 0.6 10^3/uL (0.0-1.0); MONOCYTES % (AUTO) 9.1 %; NEUTROPHILS # (AUTO) 4.1 10^3/uL (1.5-6.6); PLT - PLATELET COUNT 250 10^3/uL (130-450); RED BLOOD COUNT 4.74 10^6/uL (4.20-5.40); RED CELL DISTRIBUTION WIDTH 12.6 % (12.0-15.0); WHITE BLOOD COUNT 6.8 x10^3/uL (4.8-10.8)
[2022-09-14 11:17] LABS: ALBUMIN 4.2 g/dL (3.2-5.5); ALBUMIN/GLOBULIN RATIO 1.1 (1.0-2.2); BILIRUBIN,TOTAL 0.6 mg/dL (0.2-1.0); CALCIUM 9.4 mg/dL (8.5-10.3); CREATININE 0.5 mg/dL (0.4-1.0); TOTAL PROTEIN 8.2 g/dL (6.7-8.2)
== END 2022-09-14 10:52 | disposition home or self-care (01) ==
LOC: LAB 10:51
PROVIDERS: ATTEND Nurse Practitioner Acute Care
DX: R60.9 Edema, unspecified (principal); Z79.899 Other long term (current) drug therapy
CPT/HCPCS: 36415; 80053; 83880; 85025

== ENCOUNTER 2022-12-01 09:42 | Outpatient (CLI) | payer MEDICAID ==
--- NOTE | 2022-12-01 12:26 | Ultrasound Report ---
PROCEDURE: Duplex Ext Veins Right INDICATIONS: VENOUS EMBOLISM TECHNIQUE: Real-time imaging, as well as color and pulse Doppler interrogation, were performed of the lower extr emity deep veins from the inguinal ligament to the popliteal fossa. Attempted visualization of the ca lf veins was performed. COMPARISON: None. FINDINGS: The deep veins are normally compressible, and free of intraluminal thrombus. Color and pu lse Doppler demonstrate normal phasic intraluminal flow. There is normal augmentation response to di stal compression maneuver. Again noted is chronic SVT involving the proximal and mid greater saphenous vein. This is nonocclusiv e. IMPRESSION: Continued chronic nonocclusive clot in the proximal and mid right greater saphenous vein . No right lower extremity DVT, as before. Reviewed by: Van Santiago MD on 12/01/2022 12:25 PM PDT Approved by: Van Santiago MD on 12/01/2022 12:25 PM PDT Station ID: [id number]
== END 2022-12-01 09:43 | disposition home or self-care (01) ==
LOC: DI 09:42
PROVIDERS: ATTEND Nurse Practitioner Acute Care
DX: I82.811 Embolism and thrombosis of superficial veins of right lower extremity (principal)

== ENCOUNTER 2023-06-13 07:32 | Outpatient (CLI) | payer MEDICAID ==
[2023-06-13 11:36] LABS: BASOPHILS # (AUTO) 0.1 10^3/uL (0.0-0.1); BASOPHILS % (AUTO) 0.8 %; EOSINOPHILS # (AUTO) 0.2 10^3/uL (0.0-0.7); EOSINOPHILS % (AUTO) 3.4 %; HCT - HEMATOCRIT 42.7 % (37.0-47.0); HGB - HEMOGLOBIN 13.9 g/dL (12.0-16.0); LYMPHOCYTES # (AUTO) 1.9 10^3/uL (1.5-3.5); LYMPHOCYTES % (AUTO) 28.8 %; MEAN CORPUSCULAR HEMOGLOBIN 29.3 pg (27.0-31.0); MEAN CORPUSCULAR HGB CONC 32.6 g/dL (32.0-36.0); MEAN CORPUSCULAR VOLUME 89.9 fL (81.0-99.0); MEAN PLATELET VOLUME 11.4 fL (7.9-10.8); MONOCYTES # (AUTO) 0.6 10^3/uL (0.0-1.0); MONOCYTES % (AUTO) 9.1 %; NEUTROPHILS # (AUTO) 3.7 10^3/uL (1.5-6.6); NEUTROPHILS % (AUTO) 57.7 %; PLT - PLATELET COUNT 261 10^3/uL (130-450); RED BLOOD COUNT 4.75 10^6/uL (4.20-5.40); RED CELL DISTRIBUTION WIDTH 12.5 % (12.0-15.0); WHITE BLOOD COUNT 6.5 x10^3/uL (4.8-10.8)
[2023-06-13 12:59] LABS: ALBUMIN 4.2 g/dL (3.2-5.5); ALBUMIN/GLOBULIN RATIO 1.3 (1.0-2.2); ALKALINE PHOSPHATASE 56 IU/L (42-121); ALT ALANINE AMINOTRANSFERASE 26 IU/L (10-60); AST ASPARTATE AMINOTRANSFERASE 18 IU/L (10-42); BILIRUBIN,TOTAL 0.5 mg/dL (0.2-1.0); BUN - BLOOD UREA NITROGEN 26 mg/dL (6-20); CARBON DIOXIDE - CO2 29 mmol/L (21-32); CHLORIDE 105 mmol/L (101-111); CHOL/HDL RATIO 3.7 (<4.4); CHOLESTEROL 191 mg/dL; CREATININE 0.6 mg/dL (0.6-1.3); GFR - MDRD 101 (>89); GLUCOSE 103 mg/dL (74-104); HDL CHOLESTEROL 52 mg/dL; LDL CHOLESTEROL,CALCULATED 103 mg/dL; POTASSIUM 3.9 mmol/L (3.5-4.5); SODIUM 140 mmol/L (135-145); TOTAL PROTEIN 7.5 g/dL (6.4-8.9); TRIGLYCERIDES 178 mg/dL (48-352); VLDL CHOLESTEROL 36 mg/dL
== END 2023-06-13 07:33 | disposition home or self-care (01) ==
LOC: LAB.N 07:32
PROVIDERS: ATTEND Nurse Practitioner Acute Care
DX: Z13.228 Encounter for screening for other metabolic disorders (principal); Z13.220 Encounter for screening for lipoid disorders; Z13.29 Encounter for screening for other suspected endocrine disorder; Z13.0 Encounter for screening for diseases of the blood and blood-forming organs and certain disorders involving the immune mechanism
CPT/HCPCS: 36415; 80050; 80061; 83721

== ENCOUNTER 2023-06-15 12:23 | Outpatient (CLI) | payer MEDICAID ==
--- NOTE | 2023-06-18 09:59 | Mammography Report ---
BILATERAL DIGITAL DIAGNOSTIC MAMMOGRAM 3D/2D: 06/15/2023 CLINICAL: Palpable right breast lump. Due for bilateral exam. Comparison is made to exams dated: 08/03/2022 mammogram, 11/12/2020 mammogram, 10/24/2020 mammogram, 12/01 mammogram, 11/16/2016 mammogram - [facility], and 03/02/2014 mammogram - [facility]. There are scattered areas of fibroglandular density in both breasts (category b / 25%-50% glandular t issue). No significant masses, calcifications, or other findings are seen in either breast. IMPRESSION: INCOMPLETE: NEEDS ADDITIONAL IMAGING EVALUATION There is no mammographic abnormality seen in the right breast to correspond with the palpable abnorma lity, however, targeted ultrasound of the right breast is recommended and will be performed immediat richie following this exam. Based on the Tyrer Cuzick model (a risk assessment model) the patient's lifetime risk is 6.9% and her 10 year risk is 3.1%. According to the ACR, ACS, and NCCN guidelines, an annual breast MRI exam annita g with mammogram is recommended if the patient's lifetime risk is 20% or greater. This exam was interpreted at Station ID: [id number]. NOTE: For mammograms, a report in lay terms will be sent to the patient. Approximately 15% of breast malignancies will not be visualized mammographically. In the management of a palpable breast mass, a negative mammogram must not discourage biopsy of a clinically suspicious lesion. Electronically Signed By: Larissa Brambila M.D. lk/:06/15/2023 13:38:51 ACR BI-RADS Category 0: Incomplete 3340F PARENCHYMAL PATTERN: (A) - The breast(s) demonstrate(s) scattered fibroglandular densities. BI-RADS CATEGORY: (0) - 0 Ultrasound [id number] Immediate follow-up LATERALITY: (B)
--- NOTE | 2023-06-18 09:59 | Ultrasound Report ---
LIMITED ULTRASOUND OF RIGHT BREAST: 06/15/2023 CLINICAL: Palpable right breast lump. Comparison is made to exams dated: 08/03/2022 mammogram, 11/12/2020 ultrasound, and 11/12/2020 mammogram - [facility]. Color flow ultrasound of the right breast 1 o'clock region was performed on the areas of interest. G ray scale images of the real-time examination were reviewed. There is a 3.1 cm x 3.3 cm x 1.4 cm mass in the right breast at 1 o'clock posterior depth. This mas s is isoechoic to the surrounding fatty breast tissue. Color flow imaging demonstrates that there is no vascularity present. IMPRESSION: BENIGN There is no sonographic evidence of malignancy. 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 However, in the setting of rapid interval growth, the rare liposarcoma cannot be differentiated fro m a lipoma by imaging alone. Please correlate with patient history. Return to annual mammogram screening schedule is recommended. This exam was interpreted at Station ID: [id number]. Electronically Signed By: Larissa Brambila M.D. lk/:06/15/2023 13:41:30 Ultrasound BI-RADS: 2 Benign BI-RADS CATEGORY: (2) - 2 Mammogram [id number] return to screening LATERALITY: (B)
== END 2023-06-15 12:24 | disposition home or self-care (01) ==
LOC: DI 12:23
PROVIDERS: ATTEND Nurse Practitioner
DX: N63.12 Unspecified lump in the right breast, upper inner quadrant (principal); R92.323 Mammographic fibroglandular density, bilateral breasts

== ENCOUNTER 2023-08-07 15:04 | Outpatient (CLI) | payer MEDICAID ==
--- NOTE | 2023-08-07 17:12 | CT Report ---
PROCEDURE: Chest WO INDICATIONS: LUNG NODULE TECHNIQUE: A CT scan of the chest was performed. Intravenous contrast media was not administered. Images were re corded and evaluated at appropriate window settings. Reformats: axial MIP of the chest, coronal and s agittal. For radiation dose reduction, the following was used: automated exposure control, adjustment of mA and/or kV according to patient size. COMPARISON: CT 07/13/2022, 11/12/2020. FINDINGS: Image quality: Diagnostic. Chest wall and lower neck: No thyroid nodule which requires sonographic follow up. No axillary or sup raclavicular adenopathy by size. Right-sided breast cysts are unchanged. Lungs and pleura: No consolidation. No pleural effusions. No pneumothorax. Stable solid pulmonary no dule and juxtapleural nodules compared with 2020, therefore statistically benign. For instance, the 7 mm solid nodule in the right middle lobe is unchanged from priors (series 4, image 65), the 6 mm med ial left lower lobe solid nodule is unchanged (series 4, image 60). Mediastinum: Heart size is normal. No pericardial effusion. No large vessel abnormality. No mediastin al adenopathy by size criteria. Aberrant right subclavian artery. Marked LAD calcifications for age. Bones: No aggressive osseous abnormality. Upper Abdomen: Unremarkable. IMPRESSION: Stable solid pulmonary nodules. These are statistically benign. Marked coronary artery calcifications for age. Correlate with risk factors and advise counseling. Reviewed by: Eleazar Arzola MD on 08/07/2023 5:10 PM PDT Approved by: Eleazar Arzola MD on 08/07/2023 5:10 PM PDT Station ID: [id number]
== END 2023-08-07 15:05 | disposition home or self-care (01) ==
LOC: DI 15:04
PROVIDERS: ATTEND Nurse Practitioner Acute Care
DX: R91.8 Other nonspecific abnormal finding of lung field (principal); I25.10 Atherosclerotic heart disease of native coronary artery without angina pectoris